=== PATIENT | female | born 1995 | race Caucasian/White ===

== ENCOUNTER 2018-04-29 15:50 | Emergency (ER) | payer BC, OTHER | END 2018-04-29 16:52 | disposition home or self-care (01) | LOC: FTE 15:50 | DX: S51.002A Unspecified open wound of left elbow, initial encounter (principal); L02.414 Cutaneous abscess of left upper limb; F15.10 Other stimulant abuse, uncomplicated; X58.XXXA Exposure to other specified factors, initial encounter; Y92.9 Unspecified place or not applicable | CPT/HCPCS: 99284 ==